=== PATIENT | female | born 1990 | race Caucasian/White ===

== ENCOUNTER 2018-03-06 01:34 | Emergency (ER) | payer OTHER ==
[2018-03-06 01:42] VITALS: BP 148/104
[2018-03-06] MEDS ORDERED: NITROFURANTOIN 100MG PREPACK#2 BTL TAKEHOME ONE (02:42)
[2018-03-06] MEDS ORDERED: NITROFURANTOIN MACROBID 100 MG CAP PO ONE (02:42)
[2018-03-06] MEDS ORDERED: PHENAZOPYRIDINE HCL 200 MG TAB PO ONE (02:42)
--- NOTE | 2018-03-06 02:44 | EDPHY ---
H & P Stated Complaint: Dysuria and left-sided flank pain onset 5 hours [employer] Time Seen by Provider: 03/06/18 02:36 HPI/ROS: HPI The patient presents with several hours of dysuria, urgency and frequency. She had mild flank pain though that is now completely resolved. She has a history of urinary tract infection though remotely. She took a dose of Bactrim at home with no improvement in her symptoms. She has no nausea, vomiting, fevers, chills. REVIEW OF SYSTEMS 10 systems were reviewed and negative with the exception of the elements mentioned in the history of present illness. PMHx: Healthy, remote history of UTI Soc Hx: Here with her mother PHYSICAL General Appearance: Alert, no distress Eyes: Pupils equal and round no pallor or injection ENT, Mouth: Mucous membranes moist Respiratory: There are no retractions, lungs are clear to auscultation Cardiovascular: Regular rate and rhythm Gastrointestinal: Abdomen is soft with mild suprapubic tenderness, no flank tenderness no masses, bowel sounds normal Neurological: A&O, moves all extremities Skin: Warm and dry, no rashes Musculoskeletal: Neck is supple non tender Extremities: symmetrical, full range of motion Psychiatric: Patient is oriented X 3, there is no agitation Source: Patient Exam Limitations: No limitations - Personal History LMP (Females 10-55): 15-21 Days Ago Current Tetanus Diphtheria and Acellular Pertussis (TDAP): Yes - Medical/Surgical History Hx Asthma: No Hx Chronic Respiratory Disease: No Hx Diabetes: No Hx Cardiac Disease: No Hx Renal Disease: No Hx Cirrhosis: No Hx Alcoholism: No Hx HIV/AIDS: No Hx Splenectomy or Spleen Trauma: No Other PMH: colitis - Social History Smoking Status: Never smoked Constitutional: Initial Vital Signs Temperature (C) 36.3 C 03/06/18 01:40 Heart Rate 79 03/06/18 01:40 Respiratory Rate 16 03/06/18 01:40 Blood Pressure 148/104 H 03/06/18 01:40 O2 Sat (%) 96 03/06/18 01:40 O2 Delivery Mode Room Air Allergies/Adverse Reactions: minocycline Allergy (Verified 03/06/18 01:39) Home Medications: Medication Instructions Recorded Lialda 03/06/18 Nitrofurantoin Monohyd/M-Cryst 100 mg PO BID 5 Days capsule 03/06/18 [Macrobid 100 mg Capsule] Medical Decision Making Differential Diagnosis: This is a 27-year-old female with irritative voiding symptoms for the last several hours. UA consistent with UTI. Suspect cystitis. Will start treatment with Macrobid and Pyridium. Have considered pyelonephritis and ureterolithiasis as well. - Data Points Medications Given: Discontinued Medications Nitrofurantoin (Macrobid 100mg Prepack#2) 1 btl TAKEHOME EDNOW ONE PRN Reason: Protocol Stop: 03/06/18 02:43 Last Admin: 03/06/18 02:47 Dose: 1 btl Nitrofurantoin Macrocrystals (Macrobid) 100 mg PO EDNOW ONE PRN Reason: Protocol Stop: 03/06/18 02:43 Last Admin: 03/06/18 02:46 Dose: 100 mg Phenazopyridine HCl (Pyridium) 200 mg PO EDNOW ONE Stop: 03/06/18 02:43 Last Admin: 03/06/18 02:47 Dose: 200 mg Departure - Departure Disposition: Home, Routine, Self-Care Clinical Impression: Urinary tract infection Qualifiers: Urinary tract infection type: acute cystitis Hematuria presence: with hematuria Qualified Code(s): N30.01 - Acute cystitis with hematuria Condition: Good Instructions: Nitrofurantoin (By mouth), Urinary Tract Infection in Women (ED) Additional Instructions: Please return to the emergency department if your worse in any way. You can also take pyridium 200 mg every 6 hr which is available [id number] to help with the pain. Referrals: HEIKE VELAZQUEZ [Primary Care Provider] - As per Instructions Prescriptions: Nitrofurantoin Monohyd/M-Cryst [Macrobid 100 mg Capsule] 100 mg PO BID 5 Days capsule
== END 2018-03-06 02:58 | disposition home or self-care (01) ==
DX: N30.01 Acute cystitis with hematuria (principal); Z87.440 Personal history of urinary (tract) infections